=== PATIENT | female | born 1990 | race African-American/Black ===

== ENCOUNTER 2017-01-28 23:37 | Emergency (ER) | payer OTHER ==
[~2017-01-28] VITALS: Ht 162.6 cm; Wt 68.0 kg
[2017-01-29] MEDS ORDERED: NORCO 5-325 TA1 EACH PO (00:10)
[2017-01-29 00:26] VITALS: BP 121/71
== END 2017-01-29 00:27 | disposition home or self-care (01) ==
LOC: ER 23:37
DX: J02.9 Acute pharyngitis, unspecified (principal); H92.02 Otalgia, left ear

== ENCOUNTER 2017-05-26 14:24 | Emergency (ER) | payer OTHER ==
[~2017-05-26 14:24] MED LIST: NORCO 5-325 TA1 EACH PO
== END 2017-05-26 14:37 | disposition left against medical advice (07) ==
LOC: ER 14:24
DX: Z53.21 Procedure and treatment not carried out due to patient leaving prior to being seen by health care provider (principal)

== ENCOUNTER 2018-01-18 21:21 | Emergency (ER) | payer OTHER ==
[~2018-01-18] VITALS: Ht 162.6 cm; Wt 81.7 kg
[2018-01-18 21:49] VITALS: BP 116/69
[2018-01-18 21:51] LABS: URINE BILIRUBIN NEGATIVE (Negative); URINE BLOOD NEGATIVE (Negative); URINE CLARITY CLEAR; URINE COLOR YELLOW; URINE GLUCOSE-RANDOM* NEGATIVE (Negative); URINE KETONES NEGATIVE (Negative); URINE LEUKOCYTES-REFLEX NEGATIVE (Negative); URINE NITRITE-REFLEX NEGATIVE (Negative); URINE PROTEIN (DIPSTICK) NEGATIVE (Negative)
[2018-01-18] MEDS ORDERED: FLEXERIL PO (22:47)
[2018-01-19] MEDS ORDERED: IBUPROFEN 800800 MG PO (00:09)
[2018-01-19] MEDS ORDERED: CIPROFLOXACIN500 M1 PO (00:09)
== END 2018-01-19 01:17 | disposition home or self-care (01) ==
LOC: ER 21:21
PROVIDERS: Emergency Medicine
DX: K52.9 Noninfective gastroenteritis and colitis, unspecified (principal)

== ENCOUNTER 2018-10-19 17:35 | Emergency (ER) | payer OTHER ==
[~2018-10-19] VITALS: Ht 160 cm; Wt 70.3 kg
[~2018-10-19 17:35] MED LIST changes: +CIPROFLOXACIN500 M1 PO; +FLEXERIL PO; +IBUPROFEN 800800 MG PO
[2018-10-19] MEDS ORDERED: TESSALON PERLE100 MG PO (20:38)
[2018-10-19] MEDS ORDERED: FLONASE 0.05%50 MCG NASAL (20:38)
[2018-10-19] MEDS ORDERED: NAPROSYN500 MG PO (20:38)
[2018-10-19 20:48] VITALS: BP 124/69
== END 2018-10-19 20:57 | disposition home or self-care (01) ==
LOC: ER 17:35
DX: J06.9 Acute upper respiratory infection, unspecified (principal)

== ENCOUNTER 2018-11-09 13:52 | Emergency (ER) | payer OTHER ==
[~2018-11-09] VITALS: Ht 162.6 cm; Wt 68.0 kg
[~2018-11-09 13:52] MED LIST changes: +FLONASE 0.05%50 MCG NASAL; +NAPROSYN500 MG PO; +TESSALON PERLE100 MG PO
[2018-11-09 13:54] VITALS: BP 127/75
== END 2018-11-09 14:27 | disposition home or self-care (01) ==
LOC: ER 13:52
DX: R10.84 Generalized abdominal pain (principal); L29.9 Pruritus, unspecified

== ENCOUNTER 2019-03-12 18:47 | Emergency (ER) | payer OTHER ==
[~2019-03-12] VITALS: Ht 162.6 cm; Wt 74.8 kg
[2019-03-12 19:44] VITALS: BP 118/75
== END 2019-03-12 20:20 | disposition left against medical advice (07) ==
LOC: ER 18:47
DX: R51 Headache (principal); R42 Dizziness and giddiness

== ENCOUNTER 2019-04-22 09:12 | Emergency (ER) | payer OTHER ==
[~2019-04-22] VITALS: Ht 162.6 cm; Wt 74.8 kg
[2019-04-22 09:41] LABS: ABSOLUTE NEUTROPHILS 1.3 thou/uL (1.4-8.2); EOSINOPHILS 0.6 % (0.0-3.0); HEMATOCRIT 40.1 % (37.0-47.0); LYMPHOCYTES 56.4 % (24.0-44.0); MCH 30.6 pg (26.0-34.0); MCV 87.5 fL (80.0-100.0); MONOCYTES 4.6 % (1.0-8.0); PLATELET COUNT 230 thou/uL (150-400); POLYS 37.4 % (36.0-66.0); RBC 4.58 mil/uL (4.20-5.00); RDW 13.4 % (10.5-14.5); WBC 3.5 thou/uL (4.0-11.0)
[2019-04-22 09:41] LABS: URINE BILIRUBIN NEGATIVE (Negative); URINE BLOOD NEGATIVE (Negative); URINE CLARITY CLEAR; URINE COLOR YELLOW; URINE GLUCOSE-RANDOM* NEGATIVE (Negative); URINE KETONES NEGATIVE (Negative); URINE LEUKOCYTES-REFLEX NEGATIVE (Negative); URINE NITRITE-REFLEX NEGATIVE (Negative); URINE PROTEIN (DIPSTICK) NEGATIVE (Negative); URINE UROBILINOGEN 0.2 E.U./dl (0.2-1.0)
[2019-04-22] MEDS ORDERED: DEPO-PROVER150 MG/M1 IM (09:42)
[2019-04-22 09:58] LABS: POTASSIUM 3.6 mmol/L (3.5-5.1)
[2019-04-22 10:02] LABS: ALBUMIN 4.1 g/dL (3.4-5.0); TOTAL BILIRUBIN 0.6 mg/dL (<0.1-1.0); TOTAL PROTEIN 7.7 g/dL (6.4-8.2)
[2019-04-22 10:33] VITALS: BP 118/74
[2019-04-22] MEDS ORDERED: REGLAN 10 MG TA10 MG PO (10:36)
[2019-04-22] MEDS ORDERED: NAPROSYN500 MG PO (10:36)
--- NOTE | 2019-04-22 16:29 | EKG ---
[place] [address] [facility] [employer] [place] [address] ELECTROCARDIOGRAM REPORT Name: SARAH SINGH Room #: [facility]P [facility] [id number] Admission: 04/22/19 Attend Phys: Discharge: 04/22/19 Date of : 89 Report #: [id number] THIS REPORT FOR: //name// [facility] ED Test Date: 2019-04-22 Test Time: 09:33:55 Pat Name: SARAH SINGH Department: Room: Gender: F Photostat Operator: Bri ESCOBAR : 1990 Requested By: Charles Hannon Order Number: [id number] MD: Bart Winn Measurements Intervals Pelzer Rate: 103 P: 65 SC: 137 QRS: 60 QRSD: 86 T: -60 QT: 323 QTc: 423 Interpretive Statements Sinus tachycardia Nonspecific ST and T wave abnormality No previous ECG available for comparison Electronically Signed On 04-22-2019 16:28:53 CDT by Bart Winn [email or web address] <ELECTRONICALLY SIGNED> By: Bart Winn MD, [facility] 04/22/19 1628 0933 2 Bart Winn MD, FACC /EPI
== END 2019-04-22 10:33 | disposition home or self-care (01) ==
LOC: ER 09:12
PROVIDERS: Emergency Medicine
DX: G43.909 Migraine, unspecified, not intractable, without status migrainosus (principal); B34.9 Viral infection, unspecified